=== PATIENT | female | born 1985 | race African-American/Black ===

== ENCOUNTER 2017-06-16 15:43 | Emergency (ER) | payer MEDICAID ==
[~2017-06-16] VITALS: Ht 162.6 cm; Wt 90.7 kg
[2017-06-16 16:03] VITALS: BP 138/76
[2017-06-16] MEDS ORDERED: LORAZEPAM 0.5 MG TABLET PO ONE (17:00)
[2017-06-16] MEDS ORDERED: LIDOCAINE VISCOUS 2% UD 15 ML UDC ONE (17:52)
[2017-06-16] MEDS ORDERED: MAGNESIUM HYDROXIDE 30 ML UDC ONE (17:52)
[2017-06-16] MEDS ORDERED: LORAZEPAM 1 MG TABLET ONE (17:53)
[2017-06-16] MEDS ORDERED: LIDOCAINE VISCOUS 2% UD 15 ML UDC MM ONE (18:00)
[2017-06-16] MEDS ORDERED: MAG HYDROX/AL HYDROX/SIMETH 30 ML UDC PO ONE (18:00)
== END 2017-06-16 18:44 | disposition home or self-care (01) ==
LOC: ER 15:45
DX: R07.89 Other chest pain (principal)
CPT/HCPCS: 71045; 84703; 93005; 99285; A4606; Z7610